=== PATIENT | female | born 1995 | race African-American/Black ===

== ENCOUNTER 2024-11-13 12:47 | Inpatient (IN) | payer OTHER ==
[2024-11-13 13:34] VITALS: BMI 29.4
[2024-11-13] MEDS ORDERED: BENZONATATE 200 MG CAPSULE PO PRN (14:26)
[2024-11-13] MEDS ORDERED: guaiFENesin 600 MG TABLET.ER (FP) PO PRN (14:26)
[2024-11-13] MEDS ORDERED: ONDANSETRON *ODT* 4 MG TABLET SL PRN (14:26)
[2024-11-13] MEDS ORDERED: LOPERAMIDE HCL 2 MG CAPSULE PO PRN (14:26)
[2024-11-13] MEDS ORDERED: POLYETHYLENE GLYCOL (HEALTHYLAX) 3350 17 GM PACKET PO PRN (14:26)
[2024-11-13] MEDS ORDERED: NALOXONE (NARCAN) HCL 4 MG/0.1 ML SPRAY NS PRN (14:26)
[2024-11-13] MEDS ORDERED: MAG HYDROX/AL HYDROX/SIMETH 30 ML UNIT-DOSE CUP PO PRN (14:26)
[2024-11-13] MEDS ORDERED: NICOTINE POLACRILEX 2 MG GUM BUC PRN (14:26)
[2024-11-13] MEDS ORDERED: NICOTINE POLACRILEX 2 MG LOZENGE BC PRN (14:26)
[2024-11-13] MEDS ORDERED: MAGNESIUM HYDROX 2400MG/30ML ORAL SUSPENSION 30 ML CUP PO PRN (14:26)
[2024-11-13] MEDS ORDERED: BENZOCAINE/MENTHOL (CHLORASEPTIC ) LOZENGE MM PRN (14:26)
[2024-11-13] MEDS ORDERED: BISMUTH SUBSALICYLATE 262 MG/15 ML BTL PO PRN (14:26)
[2024-11-13] MEDS ORDERED: ACETAMINOPHEN 325 MG TABLET (FP) PO PRN (14:26)
[2024-11-13] MEDS ORDERED: IBUPROFEN 400 MG TABLET (FP) PO PRN (14:26)
[2024-11-13] MEDS: DICYCLOMINE HCL 10 MG CAPSULE PO PRN (18:32)
[2024-11-13] MEDS: hydrOXYzine PAMOATE 25 MG CAPSULE (FP) PO PRN (18:32)
[2024-11-13] MEDS: THIAMINE 100 MG TABLET PO SCH (22:29)
[2024-11-13] MEDS: SUVOREXANT 5 MG TABLET PO PRN (22:29)
[2024-11-13] MEDS: METHOCARBAMOL 500 MG TABLET PO PRN (22:29)
[2024-11-13] MEDS: MELATONIN 5 MG TABLETS PO SCH (22:29)
[2024-11-14] MEDS: cloNIDine HCL 0.1 MG TABLET PO ONE (06:35)
[2024-11-14] MEDS: IBUPROFEN 600 MG TABLET (FP) PO PRN (08:14)
[2024-11-14] MEDS: PRENATAL VITAMINS W/ FOLIC ACID TABLET (FP) PO SCH (10:18)
[2024-11-14 17:19] LABS: HEMATOCRIT 35.7 % (32.4-45.2); HEMOGLOBIN 11.7 GM/dL (10.7-15.3); MCH 27.7 pg (25.7-33.7); MCHC 32.7 g/dl (32.0-36.0); MEAN CELL VOLUME 84.7 fl (80-96); MEAN PLT VOLUME 8.7 fl (7.5-11.1); PLATELET COUNT 249 10^3/uL (134-434); RBC 4.22 M/mm3 (3.60-5.2); RDW 17.9 % (11.6-15.6); WHITE BLOOD COUNT 4.7 K/mm3 (4.0-10.0)
[2024-11-14 17:35] LABS: POTASSIUM 3.8 mmol/L (3.5-5.1)
[2024-11-14 17:38] LABS: CALCIUM 8.8 mg/dL (8.5-10.1)
[2024-11-14 17:40] LABS: ALBUMIN 3.6 g/dl (3.4-5.0); BLOOD UREA NITROGEN 11.8 mg/dL (7-18)
[2024-11-14 17:42] LABS: BILIRUBIN,TOTAL 0.2 mg/dL (0.2-1); CREATININE 0.8 mg/dL (0.55-1.3)
[2024-11-14 17:43] LABS: TOT PROT 7.4 g/dl (6.4-8.2)
[2024-11-15] MEDS ORDERED: cloNIDine HCL 0.1 MG TABLET PO PRN (09:34)
[2024-11-15] MEDS: cloNIDine HCL 0.1 MG TABLET PO ONE (09:50)
[2024-11-15 12:52] VITALS: BP 141/83; PULSE 74; RESP 18; TEMP 97.8
== END 2024-11-15 13:00 | disposition home or self-care (01) | DRG 775 ==
LOC: YASAS 12:47 → Y3N 15:42
PROVIDERS: ADMIT Allergy & Immunology; ATTEND Allergy & Immunology
PROC: HZ2ZZZZ Detoxification Services for Substance Abuse Treatment (ICD-10-PCS; principal; 2024-11-13)
DX: F10.20 Alcohol dependence, uncomplicated (principal); F17.290 Nicotine dependence, other tobacco product, uncomplicated; F41.9 Anxiety disorder, unspecified; G47.00 Insomnia, unspecified; I10 Essential (primary) hypertension
CPT/HCPCS: 36415; 80053; 80305; 80307; 81025; 85027; 86780; 93005; 93010